=== PATIENT | female | born 1965 | race Caucasian/White ===

== ENCOUNTER 2023-09-26 04:59 | Emergency (ER) | payer OTHER ==
[~2023-09-26] VITALS: Ht 162.5 cm; Wt 70.3 kg
[2023-09-26] MEDS ORDERED: Cyclobenzaprine Hydrochlorid 10 MG TAB PO ONE (06:10)
[2023-09-26] MEDS ORDERED: methylPREDNISolone sod succ 125 MG VIAL IV ONE (06:10)
[2023-09-26] MEDS ORDERED: HYDROmorphONE Hydrochloride 1 MG/ML SYR IV ONE (06:10)
[2023-09-26 08:50] LABS: BILIRUBIN Negative (Negative); BLOOD Negative (Negative); CLARITY Clear (Clear); COLOR Yellow (Yellow); GLUCOSE Negative (Negative); KETONE Negative (Negative); LEUKO ESTERASE Negative (Negative); NITRITE Negative (Negative); SPECIFIC GRAVITY 1.025 (1.001-1.030); UROBILINOGEN 0.2 E.U./dl (0.0-1.0)
[2023-09-26 09:06] LABS: BACTERIA TRACE; RBC 0-2 rbc/hpf (0-2)
== END 2023-09-26 10:31 | disposition home or self-care (01) ==
LOC: ED 04:59
PROVIDERS: Internal Medicine
DX: M54.50 Low back pain, unspecified (principal); M79.605 Pain in left leg; Z88.5 Allergy status to narcotic agent